=== PATIENT | male | born 1960 | race African-American/Black ===

== ENCOUNTER 2024-03-07 15:43 | Emergency (ER) | payer OTHER ==
[2024-03-07 16:36] LABS: Absolute Basophils 0.1 K/uL (0-0.5); Absolute Eosinophils 0.2 K/uL (0-0.5); Absolute Lymphocytes (CBC) 1.9 K/uL (0.7-4.9); Absolute Monocytes 0.5 K/uL (0.1-1.3); Absolute Neutrophil 3.6 K/uL (1.8-8.0); Basophils % 1.1 % (0-1.3); Eosinophils % 2.6 % (0-4.4); Hemoglobin 14.8 g/dL (13.6-17.9); Lymphocytes % 30.6 % (15.3-44.8); MCH 28.5 pg (27.0-35.0); MCV 86.4 fL (80-100); MPV 8.3 fL (7.6-11.3); Monocytes % 8.7 % (3.3-12.3); Platelets 210 thou/uL (152-406); RBC Red Blood Cell Count 5.21 M/uL (4.33-5.43); Red Cell Distribution Width 15.1 % (12.1-15.2)
[2024-03-07 16:39] LABS: Specific Gravity 1.025 (1.005-1.030); Sqamous Epithelial None Seen /HPF (None Seen); Urine Bacteria None Seen /HPF (<20); Urine Bilirubin NEGATIVE (Negative); Urine Blood 3+ (OVER) (Negative); Urine Clarity Turbid (Clear); Urine Color Light-Yellow (Yellow); Urine Culture Reflex Order NOT NEEDED; Urine Glucose NEGATIVE (Negative); Urine Ketones NEGATIVE (Negative); Urine Microscopic Reflex YN ORDER UMIC; Urine Mucus Slight /HPF (None Seen); Urine Nitrite NEGATIVE (Negative); Urine Protein NEGATIVE (Negative); Urine RBC >50 /HPF (None Seen); Urine Urobilinogen Normal (Normal); Urine WBC <5 /HPF (<5); Urine pH 5.5 (5.0-7.0)
--- NOTE | 2024-03-07 16:48 | RAD REPORT ---
EXAM DESCRIPTION: CT - Stone Protocol - 03/07/2024 4:34 pm CLINICAL HISTORY: Hematuria COMPARISON: None. TECHNIQUE: Computed axial tomography of the abdomen pelvis was obtained without oral or IV contrast. Lack of IV and oral contrast limits evaluation of solid organs, appendix, bowel, and vessels. Hernandez l reformatted images were obtained and reviewed. All CT scans are performed using dose optimization technique as appropriate and may include automated exposure control or mA/KV adjustment according to patient size. FINDINGS: Right nephrectomy 6.7 centimeter left renal cyst. No hydronephrosis. A renal calculus is not seen. An ureteral calculus is not noted. A bladder calculus is not present. Moderate prostatic enlargement The liver, spleen, pancreas and adrenals appear grossly normal Postsurgical changes ventral hernia repair There is no evidence of diverticulitis. The appendix appears normal Calcified granuloma left lower lobe L5-S1 disc is thinned. Vacuum phenomena is present at this level IMPRESSION: Negative for a genitourinary calculus
[2024-03-07 17:00] LABS: Albumin 3.7 g/dL (3.4-5.0); Anion Gap 4.8 mEq/L (5.0-15.0); Bilirubin Total 0.3 mg/dL (0.2-1.0); Globulin 3.8 g/dL (2.3-3.5); Potassium 3.8 mEq/L (3.5-5.1); Protein, Total 7.5 g/dL (6.4-8.2)
--- NOTE | 2024-03-07 17:26 | EDPHYS ---
Physician Documentation [facility] Name: Victor Hugo Carroll Age: 63 yrs Sex: Male : 1960 Arrival Date: 03/07/2024 Time: 15:43 Bed 17 Private MD: ED Physician Mason Gay HPI: 03/07 17:30 This 63 yrs old Black Male presents to ER via Ambulatory with complaints of Urinary kb Problem. 17:30 Pt is a 63 year old male who presents for hematuria and dysuria. States the noticed kb some burning with urination 3 days ago and had an episode of hematuria this morning. States hematuria has gotten better, but he wanted to get checked out to see what the cause was. Denies abd pain, flank pain, fever, n/v/d. . Historical: - Allergies: 16:01 No Known Allergies; hb - Home Meds: 16:01 atorvastatin oral [Active]; amlodipine oral [Active]; metformin Oral [Active]; hb - PMHx: 16:01 DM2; Kidney Cancer; Hypertension; hb - PSHx: 16:01 Nephrectomy - Right; Umbilical Hernia; hb - Immunization history:: Adult Immunizations up to date. - Infectious Disease History:: Denies. - Social history:: Smoking status: Patient denies any tobacco usage or history of. ROS: 17:29 Constitutional: As per HPI kb Exam: 17:29 Constitutional: This is a well developed, well nourished patient who is awake, alert, kb and in no acute distress. Head/Face: Normocephalic, atraumatic. ENT: Moist Mucous membranes Cardiovascular: Regular rate Respiratory: Respirations even and unlabored. No increased work of breathing. Talking in full sentences Abdomen/GI: Soft, non-tender. No distention Back: No spinal tenderness. No costovertebral tenderness. Full range of motion. Skin: Warm, dry with normal turgor. Normal color. MS/ Extremity: Pulses equal, no cyanosis. Neurovascular intact. Full, normal range of motion. Neuro: Awake and alert, GCS 15, oriented to person, place, time, and situation. Moves all extremities. Normal gait. Vital Signs: 16:01 BP 139 / 87; Pulse 77; Resp 16; Temp 98.9(O); Pulse Ox 97% on R/A; Weight 98.43 kg; hb Height 6 ft. 0 in. ; Pain 0/10; 17:26 BP 132 / 82; Pulse 71; Resp 17; Pulse Ox 100% on R/A; mb9 16:01 Body Mass Index 29.43 (98.43 kg, 182.88 cm) hb 16:01 Pain Scale: Adult hb MDM: 15:57 Patient medically screened. kb 17:29 Differential diagnosis: cystitis, malignancy, kidney stone. Data reviewed: vital signs, kb nurses notes. Counseling: I had a detailed discussion with the patient and/or guardian regarding the historical points, exam findings, and any diagnostic results supporting the discharge/admit diagnosis, lab results, radiology results, the need for outpatient follow up, a urologist, to return to the emergency department if symptoms worsen or persist or if there are any questions or concerns that arise at home. 03/07 16:32 Order name: Comprehensive Metabolic Panel; Complete Time: 17:01 EDMS 03/07 16:32 Order name: Lipase; Complete Time: 17:01 EDMS 03/07 16:33 Order name: CBC with Automated Diff; Complete Time: 16:45 EDMS 03/07 16:33 Order name: Urinalysis w/ reflexes; Complete Time: 16:45 EDMS 03/07 16:06 Order name: CT Stone Protocol; Complete Time: 16:51 kb 03/07 16:06 Order name: IV Saline Lock; Complete Time: 16:19 kb 03/07 16:06 Order name: Labs collected and sent; Complete Time: 16:19 kb Administered Medications: No medications were administered Disposition Summary: 03/07/24 17:26 Discharge Ordered Notes: Location: Home kb Condition: Stable kb Diagnosis - Hematuria, unspecified kb Followup: kb - With: Emergency Department - When: As needed - Reason: Worsening of condition Followup: kb - With: Private Physician - When: 2 - 3 days - Reason: Recheck today's complaints, Continuance of care, Re-evaluation by your physician Followup: kb - With: Asa Celestin MD - When: 2 - 3 days - Reason: Recheck today's complaints Discharge Instructions: - Discharge Summary Sheet kb - Hematuria, Adult kb Forms: - Medication Reconciliation Form kb - Antibiotic Education kb - Prescription Opioid Use kb - Patient Portal Instructions kb - Leadership Thank You Letter kb Signatures: Dispatcher [employer] EDOR Shayla Singh, LOADER OPERATOR SUPERVISOR-C LOADER OPERATOR SUPERVISOR-Ckb Beata Moore RN RN Maryjane Fierro RN RN mb9 Corrections: (The following items were deleted from the chart) 17:29 17:29 Constitutional: This is a well developed, well nourished patient who is awake, kb alert, and in no acute distress. Head/Face: Normocephalic, atraumatic. ENT: Moist Mucous membranes Cardiovascular: Regular rate Respiratory: Respirations even and unlabored. No increased work of breathing. Talking in full sentences Abdomen/GI: Soft, non-tender. No distention Skin: Warm, dry with normal turgor. Normal color. MS/ Extremity: Pulses equal, no cyanosis. Neurovascular intact. Full, normal range of motion. Neuro: Awake and alert, GCS 15, oriented to person, place, time, and situation. Moves all extremities. Normal gait. kb
--- NOTE | 2024-03-07 17:26 | ER ---
Nurse's Notes [facility] Name: Victor Hugo Carroll Age: 63 yrs Sex: Male : 1960 Arrival Date: 03/07/2024 Time: 15:43 Bed 17 Private MD: Diagnosis: Hematuria, unspecified Presentation: 03/07 16:01 Chief complaint: Burning with urination x 3 days, jennifer blood in urine today. hb Coronavirus screen: At this time, the client does not indicate any symptoms associated with coronavirus-19. Ebola Screen: No symptoms or risks identified at this time. Initial Sepsis Screen: Does the patient meet any 2 criteria? No. Patient's initial sepsis screen is negative. Does the patient have a suspected source of infection? No. Patient's initial sepsis screen is negative. Risk Assessment: Do you want to hurt yourself or someone else? Patient reports no desire to harm self or others. Onset of symptoms was March 04, 2024. 16:01 Method Of Arrival: Ambulatory hb 16:01 Acuity: JOSEPH 3 hb Historical: - Allergies: 16:01 No Known Allergies; hb - Home Meds: 16:01 atorvastatin oral [Active]; amlodipine oral [Active]; metformin Oral [Active]; hb - PMHx: 16:01 DM2; Kidney Cancer; Hypertension; hb - PSHx: 16:01 Nephrectomy - Right; Umbilical Hernia; hb - Immunization history:: Adult Immunizations up to date. - Infectious Disease History:: Denies. - Social history:: Smoking status: Patient denies any tobacco usage or history of. Screenin:19 [facility] ED Fall Risk Assessment (Adult) History of falling in the last 3 months, mb9 including since admission No falls in past 3 months (0 pts) Confusion or Disorientation No (0 pts) Intoxicated or Sedated No (0 pts) Impaired Gait No (0 pts) Mobility Assist Device Used No (0 pt) Altered Elimination No (0 pt) Score/Fall Risk Level 0 - 2 = Low Risk Oriented to surroundings, Maintained a safe environment, Educated pt \T\ family on fall prevention, incl call for assistance when getting out of bed, Assessed \T\ reinforced patient's understanding of fall precautions. Abuse screen: Denies threats or abuse. Nutritional screening: No deficits noted. Tuberculosis screening: No symptoms or risk factors identified. Assessment: 16:25 General: Appears in no apparent distress. Behavior is calm, cooperative. mb9 16:25 Pain: Denies pain. Neuro: Betancourt Agitation-Sedation Scale (RASS): 0 - Alert and Calm mb9 Level of Consciousness is awake, alert, obeys commands, Oriented to person, place, time, situation, Appropriate for age. Cardiovascular: Patient's skin is warm and dry. Respiratory: Airway is patent Respiratory effort is even, unlabored, Respiratory pattern is regular, symmetrical. GI: Abdomen is flat, non-distended, Bowel sounds present X 4 quads. : Urine is blood tinged, Reports burning with urination. EENT: No signs and/or symptoms were reported regarding the EENT system. Derm: Skin is pink, warm \T\ dry. Musculoskeletal: Range of motion: intact in all extremities. Vital Signs: 16:01 BP 139 / 87; Pulse 77; Resp 16; Temp 98.9(O); Pulse Ox 97% on R/A; Weight 98.43 kg; hb Height 6 ft. 0 in. ; Pain 0/10; 17:26 BP 132 / 82; Pulse 71; Resp 17; Pulse Ox 100% on R/A; mb9 16:01 Body Mass Index 29.43 (98.43 kg, 182.88 cm) hb 16:01 Pain Scale: Adult hb ED Course: 15:55 Patient arrived in ED. ra3 15:57 [facility]ayla [facility] FNP-C [facility] kb 15:57 Mason Gay MD is Attending Physician. kb 16:01 Triage completed. hb 16:07 Maryjane Fierro, [place] is Primary Nurse. mb9 16:19 Arm band placed on. mb9 16:20 Placed in gown. Bed in low position. Call light in reach. Side rails up X 1. Provided mb9 Education on: press call light if needing anything. Client placed on continuous cardiac and pulse oximetry monitoring. NIBP monitoring applied. 16:25 Initial lab(s) drawn, by me, sent to lab. Urine collected: clean catch specimen, clear. mb9 Inserted saline lock: 20 gauge in right antecubital area, using aseptic technique. Blood collected. Flushed with 10 mL NS. 16:36 CT Stone Protocol In Process Unspecified. EDMS 16:54 No provider procedures requiring assistance completed. mb9 17:26 Asa Celestin MD is Referral Physician. kb 17:26 IV discontinued, intact, bleeding controlled, No redness/swelling at site. Pressure mb9 dressing applied. Administered Medications: No medications were administered Medication: 16:20 VIS not applicable for this client. mb9 Outcome: 17:26 Discharge ordered by . kb 17:33 Discharged to home ambulatory, mb9 17:33 Condition: stable 17:33 Discharge instructions given to patient, Instructed on discharge instructions, follow up and referral plans. Demonstrated understanding of instructions, follow-up care, 17:33 Patient left the ED. mb9 Signatures: Dispatcher [employer] EDMS Shayla Singh, COOK MORNING-Raquel COOK MORNING-Beata Lucero, RN RN Maryjane Tyson RN RN mb9 Kenzie Awad ra3
[2024-03-07 21:23] VITALS: TEMP 98.9
[2024-03-07 21:29] VITALS: BP 132/82; O2SAT 100
== END 2024-03-07 17:33 | disposition home or self-care (01) ==
LOC: ER 15:43
DX: R31.9 Hematuria, unspecified (principal); R30.0 Dysuria; Z90.5 Acquired absence of kidney
CPT/HCPCS: 36415; 74176; 76377; 80053; 81001; 83690; 85025; 99284